=== PATIENT | male | born 1940 | race Caucasian/White ===

== ENCOUNTER 2024-04-14 14:01 | Outpatient (REF) | payer MEDICARE, SELFPAY ==
[2024-04-14 14:22] LABS: Appearance Urine Clear; Color Urine Yellow; Glucose Urine UA Negative (Negative); Leukocyte Esterase Urine Negative (Negative); Nitrite Urine Negative (Negative); Urine Blood Negative (Negative); Urine Ketones Negative (Negative); Urine Protein Negative (Neg-Trace)
[2024-04-14 14:28] LABS: Bacteria Urine None Seen (None Seen); Hyaline Casts Urine 0-2 /LPF (0-2); RBC Urine 0-2 /HPF (0-2); Squamous Epithelial Cell Urine 0-2 /HPF (0-2); WBC Urine 0-5 /HPF (0-5)
== END 2024-04-14 14:02 | disposition home or self-care (01) ==
LOC: HO.MANLNP 14:01
PROVIDERS: Visit Provider Physician Assistant
DX: R35.1 Nocturia (principal)
CPT/HCPCS: 81001

== ENCOUNTER 2024-07-21 09:34 | Outpatient (REF) | payer MEDICARE, SELFPAY ==
--- OUTSIDE RECORDS SUMMARY | 2024-07-21 10:45 | XMS_ITS | Clinical Summary ---
Author Organization [employer] Address [address] [place] [address] Care Team Providers Care Pneumatic Tube Operator Name Role Phone Unavailable Primary Care Provider Unavailabl e Social History Tobacco Use Types Packs/Day Years Used Date Smoking Tobacco: Never Assessed Sex and Gender Information Value Date Recorded Sex Assigned at Male 03/26/2022 10:32 AM EDT Legal Sex Male 10:32 AM EDT Gender Identity Male 03/26/2022 10:32 AM EDT Sexual Orientation Straight 03/26/2022 10 :32 AM EDT Plan of Treatment Health Maintenance Due Date Last Done Comments Depression Screening 1938 Lipid Panel 1938 Alcohol/Substance Use Screening 1950 Tobacco Screening 1950 DTaP/Tdap/Td Vaccines (1 - Tdap) 1957 Pneumococcal Vaccine: 50+ Ye ars (1 of 1 - PCV) 1988 Zoster Vaccines (1 of 2) 1988 RSV Patients and Pa tients Aged 60 years or older (1 - 1-dose 75+ series) 2013 COVID-19 Vaccine ( - 2023-2 5 season) 2024 Influenza Vaccine (#1) 2024 HIB Vaccines Aged Out No longer eligi ble based on patient's age to complete this topic HPV Vaccines Aged Out No longer eligi ble based on patient's age to complete this topic Hepatitis A Vaccines Aged Out No long er eligible based on patient's age to complete this topic Hepatitis B Vaccines Aged Out No long er eligible based on patient's age to complete this topic IPV Vaccines Aged Out No longer eligi ble based on patient's age to complete this topic Meningococcal Vaccine Aged Out No davi cande eligible based on patient's age to complete this topic RSV under 20 months Aged Out No longe r eligible based on patient's age to complete this topic Rotavirus Vaccines Aged Out No longer eligible based on patient's age to complete this topic
--- OUTSIDE RECORDS SUMMARY | 2024-07-21 10:45 | XMS_ITS | Encounter Summary ---
Author Organization [employer] [facility] Address [address] [place] [address] Care Team Providers Care Director Treasurer Name Role Phone Unavailable Primary Care Provider Unavailabl e Encounter Details Date Type Department Care Team (Latest Contact Info) Description 03/26/2019 Abstract [facility] CONVERSIONS Dental, Provider, DDS Social History Tobacco Use Types Packs/Day Years Used Date Smoking Tobacco: Never Assessed Sex and Gender Information Value Date Recorded Sex Assigned at Male 03/26/2022 10:32 AM EDT Legal Sex Male 10:32 AM EDT Gender Identity Male 03/26/2022 10:32 AM EDT Sexual Orientation Straight 03/26/2022 10 :32 AM EDT documented as of this encounter Plan of Treatment Not on file documented as of this encounter Visit Diagnoses Not on filedocumented in this encounter
--- OUTSIDE RECORDS SUMMARY | 2024-07-21 10:45 | XMS_ITS ---
Author Name [facility] [place] Organization [facility] [place] Address [address] [place] [address] Care Team Providers Care Congressional District Aide Name Role Phone GERMAINE OLIVAREZ Primary Care Provider Unavailabl e Insurance Providers: All historical and current Section Date Range: From patient's date of to the date document was created. This section includes the names of all active insurance providers for the patient. Insurance Provider Type of Coverage Plan Name Start of Policy Coverage End of Policy Coverage Group Number Member ID Insurance Provider's Telephone Number Policy Acosta's Name Patient's Relationship to Policy Acosta [facility] MEDICARE SUPPLEMEN LUZ MARIA MEDEX 2 [birth year], 2010 [id number] [phone] GROUT,LUBA ERT PATIENT [facility] MEDICARE SUPPLEMEN LUZ MARIA MEDEX 2 May 27, 2010 [id number] GROUT,LUBA ERT PATIENT MEDICARE (WN) MEDICARE (M) PART A Feb 24, 2003 PART A [id number] GROUT,LUBA ERT PATIENT MEDICARE (WN) MEDICARE (M) PART B Feb 24, 2003 PART B [id number] GROUT,LUBA ERT PATIENT Selected Encounter This section includes the information on record at [place] for the Encounter. Date/Time Encounter Type Encounter Description Reason Provider Source May 14, 2024 02:00 PM HEARING AID REPAIR/MODIFYIN G AUDIOLOGY ICD-10-CM Z46.1 Encounter for fitting and adjustment of hearing aid DEVON HOLLIDAY [facility] Encounter Template Text not used by [place] Assessments - Encounter Diagnoses This section includes the primary and secondary diagnoses documented for the Encounter. Date/Time Primary/Secondary Diagnosis Diagnosis Name Provider Source May 14, 2024 05:49 PM PRIMARY Encounter for fitting and adjustment of hearing aid DEVON HOLLIDAY [place] [facility] May 14, 2024 05:49 PM SECONDARY Sensorineural hearing loss, bilateral [facility] Plan of Treatment: Future Appointments (+ 6 months) and Future Tests (+/- 45 days) The Plan of Treatment section includes future care activities for the patient from all [place] [facility]. This section includes future appointments and future orders which are active, pending or scheduled. Future Appointments This section includes appointments that were scheduled to occur 6 months from the date of the Encounter, up to a maximum of 20 appointments. The data comes from all [place] treatment facilities. Appointment Date/Time Appointment Type Appointme nt Facility Name Jul 27, 2024 09:00 AM AMBULATORY - MEDICINE [facility] Social History: Smoking Status (Most current) and Tobacco Use (All prior to encounter date) This section includes the most current, and the historical, smoking and tobacco- related health factors from the [facility] facility where the Encounter took place. Current Smoking Status This section includes the most current smoking, or tobacco-related health factor, from the [place] facility where the Encounter took place. Date/Time Current Smoking Status Comment Elida khalil Jul 16, 2023 08:00 AM [place]-TOBACCO NEVER USED [facility] Tobacco Use History This section includes a history of the smoking, or tobacco-related health factors, that were collected on or before the date of the Encounter. The data comes from the [place] facility where the Encounter took place. Date/Time Smoking Status/Tobacco Use Comment F acility Jun 19, 2022 09:00 AM [place]-TOBACCO [place] US[place] [facility] Jun 19, 2021 10:00 AM [place]-TOBACCO [place] USED [place] [facility] Jun 20, 2020 10:00 AM [place]-TOBACCO [place] USED [place] [facility] [facility] Jun 23, 2018 09:13 AM [place]-TOBACCO [place] USED [place] [facility] Jun 24, 2017 01:59 PM VA-TOBACCO NEVER USED [place] [facility] Jun 24, 2017 01:01 PM LIFETIME NON-TOBACCO USER [facility] Advance Directives: All historical and current Section Date Range: From patient's date of to the date document was created. This section includes ALL of a patient's completed or amended [place] Advance and Rescinded Directives. The entries below indicate that a directive exists for the patient, but an actual copy is not included with this document. The data comes from all [place] facilities. Date Advance Directives Provider Source September 27, 2020 ADVANCE DIRECTIVE GERMAINE OLIVAREZ [facility] Encounter Notes: All associated encounter notes This section contains the clinical notes associated to the Encounter. Date/Time Encounter Note(s) Provider Source May 14, 2024 02:20 PM AUDIOLOGY E & M NO TE: [facility] TITLE: AUDIOLOGY CLINIC STANDARD TITLE: AUDIOLOGY E & M NOTE DATE OF NOTE: MAY 14, 2024@14:20 ENTRY DATE: MAY 14, 2024@14:20:45 AUTHOR: DEVON HOLLIDAY COSIGNER: URGENCY: STATUS: COMPLETED Dx CODE: Z46.1-Encounter for Fitting/Adjusting Hearing Aid(s); H90.3- Sensorineural Hearing Loss, Bilateral APPOINTMENT TYPE: Hearing Aid Check HISTORY/BACKGROUND: was seen for a hearing aid follow-up appointment, unaccompanied. He was fit on 12/12/21 with [employer] EVOLV AI BTE 13s. He scheduled today appointment noting that the right aid stopped working. HEARING AID CHECK: Inspection indicated moisture in the right thin tube. The hearing aids were cleaned and checked. Listening inspection revealed both devices were working well. Thin tubes and microphone covers were replaced. Hearing aids were in good working condition post-maintenance. He was provided a hearing aid tubing blower to use in this happens again. PLAN/RECOMMENDATION(S): 1. Follow up as needed. Patient Education Education provided on the following topics: Hearing aids Education provided to: P Response to Education: VU [place] Patient P Family F Significant Other SO Verbalizes Understanding VU Returns Demonstration RD Performs Independently PI Lacks Comprehension LC Refused Education RE Not Applicable NA /verena/ EFRAIN JADE, CCC-A STAFF GRINDER SET UP OPERATOR EXTERNAL Signed: 05/14/2024 17:50 DEVON HOLLIDAY [facility]
--- OUTSIDE RECORDS SUMMARY | 2024-07-21 10:45 | XMS_ITS | Continuity of Care Document ---
Author Name [facility] Organization [facility] Care Team Providers Care Automotive Parts Specialist Name Role Phone [facility] Unavailable Unavailable Problems Combined list of problems from Department of [facility] and [facility] facilities. It does not include entries that were removed or entered in error. Problem Status Onset Date Problem Type Date of Resolution Comments Source Primary malignant neoplasm of prostate Active 4 Condition Dec 13, 2023 Entered By: GERMAINE OLIVAREZ Comment: treated with radiation therapy [facility] Hearing Loss ([facility] [id number]) Active 9 Condition Jun 23, 2018 Entered By: GERMAINE OLIVAREZ Comment: treated with hearing aids [facility] HTN - Hypertension ([facility] [id number]) Active 9 Condition Jun 23, 2018 Entered By: GERMAINE OLIVAREZ Comment: followed by private M.D. [facility] [place] [facility] New patient screening status Active [address] [facility] [place] [facility] Diagnosis: ICD-10-CM Z46.1 Encounter for fitting and adjustment of hearing aid Active Diagnosis [facility] [place] [facility] Diagnosis: ICD-10-CM Z02.89 Encounter for other administrative examinations Active Diagnosis [facility] Diagnosis: ICD-10-CM H91.90 Unspecified hearing loss, unspecified ear Active Diagnosis [facility] [place] [facility] Medications Combined list of outpatient medications from Department of Defense and Veterans Affairs facilities.Medications provided include 1) outpatient medications from the last 15 months, and 2) patient-reported medications. Medication Details Route Status Patient Instructions Prescription Expires Prescription Number Last Dispense Date Ordering Provider Order Date Order Qty Source AMLODIPINE BESYLATE 5MG TAB TAKE ONE TABLET BY MOUTH ONCE DAILY ORAL ACTIVE CAROLYN [facility]IVAREZ [address] [facility] ASPIRIN 81MG TAB,EC TAKE ONE TABLET BY MOUTH EVERY DAY ORAL ACTIVE CAROLYN OLIVAREZ 2017 [facility] [place] [facility] Immunizations Combined list of available immunizations from the Department of Defense and Veterans Affairs facilities. Immunization Series Date Given Administered By Site Reaction Lot Number CVX Code Drug Substation Inspector Status Comments Source INFLUENZA, UNSPECIFIED FORMULATION 2022 88 complet ed [facility] [place] [facility] INFLUENZA, UNSPECIFIED FORMULATION 2020 88 complet ed [facility] [place] [facility] [facility] COVID-19 (MODERNA), MRNA, LNP-S, PF, 100 MCG/0.5 ML DOSE 2 2020 207 complet ed MOD; [id number]; 1 [facility] [place] [facility] COVID-19 (MODERNA), MRNA, LNP-S, PF, 100 MCG/0.5 ML DOSE 1 2020 207 complet ed MOD; [id number]; 1 [facility] [place] [facility] INFLUENZA, UNSPECIFIED FORMULATION 2019 88 complet ed [facility] [place] [facility] TD(ADULT) UNSPECIFIED FORMULATION 2019 139 complet ed [facility] [place] [facility] INFLUENZA, SEASONAL, INJECTABLE 2018 141 complet ed [facility] [place] [facility] INFLUENZA, SEASONAL, INJECTABLE 2017 141 complet ed [facility] [place] [facility] ZOSTER RECOMBINANT 2 2017 187 complet ed [facility] [place] [facility] ZOSTER RECOMBINANT 2017 187 complet ed [facility] [place] [facility] INFLUENZA, SEASONAL, INJECTABLE 2016 141 complet ed [facility] [place] [facility] Encounters Combined list of: 1) Encounters from Department of Veterans Affairs facilities going backup to the last 18 months, not all VA inpatient encounters are included; 2) Encounters from the Department of Defense facilities going backup to 280 months. Location Location Details Encounter Type Encounter Number Reason For Visit Attending Provider ADM Date DC Date Status Disposition Source [facility] [place] [facility] Outpatient Encounter [id number] 02/28 [facility] [place] [facility] [place] [facility] Encounter [id number] 06/13 [facility] [place] [facility] [place] Encounter [id number] 06/17 [facility] [place] [facility] [facility] [place] Encounter [id number] 07/09 [facility] [place] [facility] [place] [facility] OFF[facility] O/P EST SF 10 MIN [id number] Diagnos is: ICD-10- CM H91.90 Unspeci fied hearing loss, unspeci fied ear TAIWO OLIVAREZ RD 07/16 [facility] [place] [facility] [facility] [place] Encounter [id number] 08/08 [facility] [place] [facility] [place] Out[facility] Encounter [id number] Diagnos is: ICD-10- CM Z02.89 Encount er for other adminis trative examina tions ANJALI MYERS L 10/08 [facility] [place] [facility] [facility] [place] HEARING AID REPAIR/MOD IFYING [id number] Diagnos is: ICD-10- CM Z46.1 Encount er for fitting and adjustm ent of hearing aid ANJALI MYERS L 10/08 [facility] [place] [place] En[facility] [id number] 12/12 [facility] [place] [facility] [place] [facility] HEARING AID FITTING/CH ECKING [id number] Diagnos is: ICD-10- CM Z46.1 Encount er for fitting and adjustm ent of hearing aid Ravinder MARMOLEJO E 01/22 [place] [facility] [place] [facility] [place] [place] [facility] HEARING AID REPAIR/MOD IFYING [id number] Diagnos is: ICD-10- CM Z46.1 Encount er for fitting and adjustm ent of hearing aid ,YASIR ELLSWORTH L 05/14 [facility] [place] [place] [facility] Social History Combined list of available smoking, tobacco, and other social history from Department of Defense and Veterans Affairs facilities. Social History Type Response Date Comment Sour e Tobacco smoking status KSIS [place]-TOBACCO NEVER USED 07/16/2023 [place] [facility] [place] [facility] of [facility]/19/2022 [place] [facility] [place] [facility] [facility] History of tobacco use [facility] 06/19/2021 [place] [facility] [place] [facility] [facility] History of tobacco use MO-TOBACCO NEVER USED 06/20/2020 [place] [facility] [place] [facility] History of tobacco use MO-TOBACCO NEVER USED 06/23/2018 [facility] [place] [facility] History of tobacco use [place]-TOBACCO NEVER USED 06/24/2017 [place] [facility] [place] [facility] History of tobacco use LIFETIME NON-TOBACCO USER 06/24/2017 [facility] [place] [facility] Plan of Care List of future care activities from Department [facility] facilities. Additional future care activities may be listed in the Assessment and Plan section. Date/Time Care Activity Care Activity Detail Facili ty 07/27/2024 AMBULATORY - MEDICINE AMBULATORY - MEDICI NE [facility] Advance Directives List of completed, amended, or rescinded Advance Directives on record at Department of [facility] facilities. An actual copy of the Directive is not included. Date Advance Directive Provider Source 09/27/2020 ADVANCE DIRECTIVE GERMAINE OLIVAREZ [place] [facility]
--- OUTSIDE RECORDS SUMMARY | 2024-07-21 10:45 | XMS_ITS | Encounter Summary ---
Author Name [facility] Organization [facility] [place] Address [address] [place] [address] Care Team Providers Care Pharmacy Laboratory Technician Name Role Phone GERMAINE OLIVAREZ Primary Care [...] Acosta's Name Patient's Relationship to Policy Acosta [facility] MEDICARE SUPPLEMEN LUZ MARIA MEDEX 2 [birth year] 2010 [id number] GROUT,LUBA ERT PATIENT [facility] MEDICARE SUPPLEMEN LUZ MARIA MEDEX 2 May 27, 2010 [id number] GROUT,LUBA ERT PATIENT MEDICARE (WN) MEDICARE (M) PART A Feb 24, 2003 PART A [id number] GROUT,LUBA ERT PATIENT MEDICARE (WN) MEDICARE (M) PART B Feb 24, 2003 PART B [id number] GROUT,LUBA ERT PATIENT Selected Encounter This section includes the information on record at [place] for the Encounter. Date/Time Encounter Type Encounter Description Reason Provider Source Jan 23, 2024 08:30 AM HEARING AID FITTING/CHECKIN G AUDIOLOGY ICD-10-CM Z46.1 Encounter for fitting and adjustment of hearing aid SUHAANGQIDRE E E Encounter Template Text not used by [facility] Assessments - Encounter Diagnoses This section includes the primary and secondary diagnoses documented for the Encounter. Date/Time Primary/Secondary Diagnosis Diagnosis Name Provider Source Jan 23, 2024 08:46 AM PRIMARY Encounter for fitting and adjustment of hearing aid JALEELDRE E [place] [facility] [place] [facility] Jan 23, 2024 08:46 AM SECONDARY Sensorineural hearing loss, bilateral JALEELDRE E [place] [facility] [facility] Plan of Treatment: Future Appointments (+ 6 months) and Future Tests (+/- 45 days) The Plan of Treatment section includes future care activities for the patient from all [place] [facility]. This section includes future appointments and future orders which are active, pending or scheduled. Future Appointments This section includes appointments that were scheduled to occur 6 months from the date of the Encounter, up to a maximum of 20 appointments. The data comes from all [place] treatment facilities. Appointment Date/Time Appointment Type Appointme nt Facility Name May 14, 2024 02:00 PM AMBULATORY - REHAB MEDICIN E [place] [facility] [place] [facility] Social History: Smoking Status (Most current) and Tobacco Use (All prior to encounter date) This section includes the most current, and the historical, smoking and tobacco- related health factors from the VA facility where the Encounter took place. Current Smoking Status This section includes the most current smoking, or tobacco-related health factor, from the [place] facility where the Encounter took place. Date/Time Current Smoking Status Comment Elida khalil Jul 16, 2023 08:00 AM VA-TOBACCO NEVER USED [place] [facility] [place] [facility] Tobacco Use History This section includes a history of the smoking, or tobacco-related health factors, that were collected on or before the date of the Encounter. The data comes from the [place] facility where the Encounter took place. Date/Time Smoking Status/Tobacco Use Comment F acility Jun 19, 2022 09:00 AM VA-TOBACCO NEVER USED [facility] [facility] Jun 19, 2021 10:00 AM VA-TOBACCO NEVER USED [facility] [facility] Jun 20, 2020 10:00 AM VA-TOBACCO NEVER USED [facility] [place] [facility] Jun 23, 2018 09:13 AM VA-TOBACCO [facility]ED [facility] Jun 24, 2017 01:59 PM VA-TOBACCO [facility] Jun 24, 2017 01:01 PM LIFETIME NON-TOBACCO USER [facility] Advance Directives: All historical and current Section Date Range: From patient's date of to the date document was created. This section includes ALL of a patient's completed or amended [place] Advance and Rescinded Directives. The entries below indicate that a directive exists for the patient, but an actual copy is not included with this document. The data comes from all [place] facilities. Date Advance Directives Provider Source September 27, 2020 ADVANCE DIRECTIVE GERMAINE OLIVAREZ [employer] Encounter Notes: All associated encounter notes This section contains the clinical notes associated to the Encounter. Date/Time Encounter Note(s) Provider Source Jan 23, 2024 07:46 AM AUDIOLOGY E & M NO TE: LOCAL TITLE: AUDIOLOGY CLINIC STANDARD TITLE: AUDIOLOGY E & M NOTE DATE OF NOTE: JAN 23, 2024@07:46 ENTRY DATE: JAN 23, 2024@07:46:41 AUTHOR: DRE MARMOLEJO EXP COSIGNER: URGENCY: STATUS: COMPLETED has a history of bilateral sensorineural hearing loss. He was seen on 01-23-24 for hearing aid follow up regarding his Deborah BTEs- he reported he cleaned the earmolds/tubing with water and now they don't work. He asked about if the VCs work. Initial check revealed both are working fine- agreed when he put them in. Explained moisture must have been clogging tubing temporarily- recommended maintenance every 3-4 months instead of cleaning with water. Tubing and irena covers were replaced. The listening check was positive for both hearing aids. Connected to both aids to [facility]I and verified VC settings. [place] will contact the clinic as needed. /verena/ Nino MEADOWS, [facility] [employer]-A STAFF STUDIO OPERATIONS MANAGER Signed: 01/23/2024 08:52 DRE MARMOLEJO [employer]
--- OUTSIDE RECORDS SUMMARY | 2024-07-21 10:46 | XMS_ITS | Data Portability ---
Author Organization [facility] Service Address [address] [place] [address] Assessment Encounter Date Assessment Date Assessment LastModified by Organization Details LastModified Time 09/23/2023 09/23/2023 Patient presente d to office today for their Medicare Annual Wellness Visit. Education was provided on healthy nutrition, including a diet rich in fruits and vegetables, minimizing simple carbohydrates, salt, and saturated fats. Encouraged regular cardiovascular exercise such as walking at least 30 minutes daily, 5 times per week. Emphasized preventive health measures and educated pt on fall prevention and community-based lifestyle interventions to help reduce health risks and promote healthy living. 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 MUST MEET 2 OUT OF 3 ELEMENTS: PROBLEMS, DATA OR RISK ELEMENT 1: PROBLEMS ADDRESSED 1 OR MORE CHRONIC ILLNESS WITH EXACERBATION OR 2 OR MORE STABLE CHRONIC ILLNESSES OR 1 UNDIAGNOSED NEW PROBLEM OR 1 ACUTE ILLNESS W/SYMPTOMS OR 1 ACUTE COMPLICATED INJURY ELEMENT 2: DATA MUST MEET 1 OF 3 CATEGORIES CATEGORY 1: REVIEW OF PRIOR EXTERNAL NOTES, REVIEW OF RESULTS, ORDERING OF EACH TEST, ASSESSMENT REQUIRING INDEPENDENT HISTORIAN OR CATEGORY 2: INDEPENDENT INTERPRETATION OF TESTS BY ANOTHER PHYSICIAN OR SPECIALIST OR CATEGORY 3: DISCUSSION OF MGT OR TEST INTERPRETATION W/EXTERNAL PHYSICIAN OR SPECIALIST ELEMENT 3: RISK RISK OF COMPLICATIONS AND/OR MORBIDITY OR MORTALITY OF PATIENT MANAGEMENT PROVIDER MUST THOROUGHLY DOCUMENT EACH ELEMENT THAT IS COVERED Not available 01/21/2024 10:14:24 Plan of Treatment Reminders Order Date Submit Date Provider Last Modified By Organization Details Last Modified Time Details Appointments FOLLOW UP 15 2024 09:15A BAKARI ADAMS Not available Not available Not available Lab vitamin B12 + folate, serum or blood 02/2024 [facility], [address] [place] [address], [id number], 07/21/2024 09:56:06 RPR (rapid plasma reagin), serum 2024 [facility], [address] [place] [address], [id number], 07/21/2024 09:56:06 TSH + free T4, serum 2024 [facility], [address] [place] [address], [id number], 07/21/2024 09:56:06 hemoglobi n A1c, QN, blood 2024 [facility], [address] [place] [address], [id number], 07/21/2024 09:29:53 PSA, serum or plasma 2024 [facility], [address] [place] [address], [id number], 07/21/2024 09:56:06 CK (creatine kinase), total, serum 2024 [facility], [address] [place] [address], [id number], 07/21/2024 09:24:11 CMP, serum or plasma 2024 025 [facility], [address] [place] [address], [id number], 07/21/2024 09:24:11 magnesium , serum or plasma 2024 [facility], [address] [place] [address], [id number], 07/21/2024 09:24:11 CMP, serum or plasma 2024 025 [facility], [address] [place] [address], [id number], 07/21/2024 09:24:11 zinc, serum or plasma 2024 025 [facility], [address] [place] [address], [id number], 07/21/2024 09:24:11 PTH (parathyr oid hormone), intact + calcium, serum or plasma 2024 025 [facility], [address] [place] [address], [id number], 07/21/2024 09:24:12 phosphoru s, serum or plasma 2024 025 [facility], [address] [place] [address], [id number], 07/21/2024 09:24:12 ESR (erythroc yte sedimenta tion rate), blood 2024 025 [facility], [address] [place] [address], [id number], 07/21/2024 09:24:11 C reactive protein, QN, serum or plasma 2024 025 [facility], [address] [place] [address], [address], 07/21/2024 09:24:11 urinalysi s, dipstick 2023 024 [facility], [address] [facility], [address], [place], [address], 04/14/2024 12:08:02 urinalysi s complete, reflex culture 2023 024 [facility], [address] [place], [place] [address], [place], [address], 04/15/2024 11:54:47 PSA, total, serum or plasma 2023 024 [facility] ([facility]), [address] [place] [address], [id number], 04/15/2024 14:24:56 CMP, serum or plasma 2023 024 [facility] ([facility]), [address] [place] [address], [address], 04/14/2024 11:53:33 renin activity + aldostero ne, plasma 2023 024 [facility] ([facility]patient), [address] [place] [address], [id number], 04/17/2024 08:29:58 CBC w/ auto diff 2023 024 [facility] ([facility]), [address] [place] [address], [id number], 04/14/2024 16:00:24 lipid panel, blood 2023 024 [facility] ([facility]patient), [address] [place] [address], [address], 02/18/2024 17:38:55 CBC w/ auto diff 2023 024 [facility] ([facility]), [address] [place] [address], [address], 09/24/2023 12:56:36 CMP, serum or plasma 2023 024 [facility] ([facility]), [address] [place] [address], [address], 09/24/2023 13:39:26 CK (creatine kinase), total, serum 2023 024 [facility] (Outpatient), [address] [place], [address], 09/23/2023 15:19:51 ESR (erythroc yte sedimenta tion rate), blood 2023 [facility] ([facility]patient), [address] [place], [address], 09/24/2023 14:30:56 C reactive protein, QN, serum or plasma 2023 [facility] ([facility]), [address] [place], [address], 09/23/2023 15:19:52 Referral dermatolo gist referral 2023 024 [facility], [address], [place], [address], 04/15/2024 08:46:50 dermatolo gist referral 2023 024 [facility], [address], [place], [address], 03/25/2024 08:10:19 orthopedi c surgeon referral 2023 024 [facility], [address] [place] [address], [address], 03/31/2024 08:10:43 physical therapist referral 2023 024 [facility], [address] [place], [address], 01/22/2024 10:53:44 Procedures None recorded. Surgeries None recorded. Imaging US, bladder 2023 [facility], [address] [place] [address], [id number], 04/21/2024 14:37:43 NM, bone scan, whole body 2023 024 [facility], [address] [place], [address], 01/22/2024 10:55:44 CT, chest + abdomen + pelvis, w/o contrast 2023 024 [facility], [address] [place], [address], 01/22/2024 10:55:44 Medication Orders tamsulosi n 0.4 mg capsule 2024 025 [facility] [place] [address], 07/21/2024 09:16:32 amlodipin e 5 mg tablet 2023 024 [facility], [place], [address], 03/24/2024 10:37:28 mupirocin 2 % topical ointment 2023 [id number], [address] [place], [address], 03/24/2024 10:37:47 Patient TargetsNo targets recorded. Patient Instructions Encounter Date Encounter Id Patient Instructions Last Modified By Organization Details Last Modified Time 09/23/2023 [id number] prostate biopsy: about this test Not available 09/23/2023 15:20:45 advance care planning: care instructions Not available 09/23/2023 15:18:29 physical therapy evaluation* - please evaluate gait and leg muscle pain [email or web address] Not available 09/30/2023 08:29:30 Discussed and explained advance directives such as standard forms to the {{patient* caregi lou patient and caregiver}}. Face to face discussion lasted for a duration of _15__ minutes. Not available 09/23/2023 15:14:56 Reason for Referral Physical Therapist Referral for Unsteady when walking Referring Physician: Ad Ching, Internal Medicine, Encounter Date: 01/21/2024 Orthopedic Surgeon Referral for Pain in lower limb bilateral LE pain, had PT which was not effective, muscle pain and cramping, constant, knee pain Referring Physician: Tata Coe, Internal Medicine, Encounter Date: 03/24/2024 Research Asst Referral for M ultiple benign melanocytic nevi needs skin check, new skin lesion on face Referring Physician: Tata Coe, Internal Medicine, Encounter Date: 03/24/2024 Research Asst Referral for 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, 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2 Not Available [facility] [address], [place], [address], 04/14/2024 11:27:38 04/14/20 24 04/14/2024 urina lysis , dipst ick Protein Negati ve Not Available [facility] [address] [place], [address], 04/14/2024 11:27:38 04/14/20 24 04/14/2024 urina lysis , dipst ick pH 7.5 Not Available [facility] [address] [facility] [address], [place], [address], 04/14/2024 11:27:38 04/14/20 24 04/14/2024 urina lysis , dipst ick Blood Negati ve Not Available [facility] [address], [place], [address], 04/14/2024 11:27:38 04/14/20 24 04/14/2024 urina lysis , dipst ick Specific [place] 1.010 Not Available [facility] [address], [place], [address], 04/14/2024 11:27:38 04/14/20 24 04/14/2024 urina lysis , dipst ick Ketone Negati ve Not Available [facility] [address] [facility] [address], [place], [address], 04/14/2024 11:27:38 04/14/20 24 04/14/2024 urina lysis , dipst ick Bilirubin Negati ve Not Available [facility] [address] [facility] [address], [place], [address], 04/14/2024 11:27:38 04/14/20 24 04/14/2024 urina lysis , dipst ick Glucose Negati ve Not Available [facility] [address] [facility] [address], [place], [address], 04/14/2024 11:27:38 04/14/20 24 04/14/2024 urina lysis , dipst ick Appearance Clear Not Available [facility] [address] [facility] [address], [place], [address], 04/14/2024 11:27:38 04/14/20 24 04/14/2024 urina lysis , dipst ick Color Pale Yellow Not Available [facility] [address] [facility] [address], [place], [address], 04/14/2024 11:27:38 08/26/19 24 08/25/2023 CT, head, w/o contr ast No observ ation record ed. [facility] [address] [place] [address], [address], 09/23/2023 15:02:30 03/05/20 24 2024 NM, bone scan, whole body No observ ation record ed. [email or web address] [address], [address], 03/06/2024 10:34:22 03/06/20 24 03/04/2024 CT, chest + abdom en + pelvi s, w/o contr ast No observ ation record [facility]. [email or web address] [address], [place], [address], 03/06/2024 14:04:39 03/06/20 24 03/04/2024 CT, chest + abdom en + pelvi s, w/o contr ast No observ ation record ed. [email or web address] [address], [place], [address], 03/06/2024 14:04:40 04/21/20 24 04/21/2024 US, bladd er No observ ation record ed. [email or web address] [address], [address], 04/21/2024 15:58:50 Result Notes None recorded. 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 03106714 Active 2021 Ad Ching, DO [address] [place] [address], [address], [facility] 2 10:47:35 Right inguinal hernia 339373262 Active 2021 Ad Ching DO [address] [place] [address], [address], [facility] 2 13:34:12 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 244342230 Active 2022 Ad Ching DO [address] [place] [address], [address], [facility] 3 09:50:19 Intermit tent claudica tion 29882042 Active 2022 Ad Ching DO [address] [place] [address], [address], [facility] 3 10:23:12 Benign prostati c hyperpla glenis 868626099 Active 2022 Ad Ching DO [address] [place] [address], [address], [facility] 3 10:58:07 Pain in lower limb 68116778 Active 2022 Ad Ching DO [address] [place] [address], [address], [facility] 3 11:02:34 Pain in lower limb 08324823 Active 2022 Ad Ching DO [address] [place] [address], [address], [facility] 3 11:03:11 Weakness of left lower limb Active 2022 Ad Ching DO [address] [place] [address], [address], [facility] 3 09:57:19 Weakness of right lower limb Active 2022 Ad Ching, DO [address] [place], [address], [facility] 3 09:57:31 Age-asso ciated memory impairme nt 157412447 Active 2023 Ad Ching, DO [address] [place], [address], [facility] 4 11:42:31 Memory impairme nt 517031086 Active 2023 Ad Ching, DO [address] [place], [address], [facility] 4 09:07:02 Foreskin does not retract 115228648 Active 2023 Ad Ching, DO [address] [place] [address], [address], [facility] 4 09:13:45 Muscle pain 22170401 Active 2023 Ad Ching, DO [address] [place] [address], [address], [facility] 4 15:09:33 Prostate specific antigen above referenc e range 023156338 Active 2023 Ad Ching, DO [address] [place] [address], [address], [facility] 4 15:20:12 Lesion of pinna 442914412 Active 2023 Ad Ching, DO [address] [place] [address], [address], [facility] 4 15:26:28 Bilatera l cramp of muscle of lower limbs 05358921042 624734 Active 2023 Ad Ching, DO [address] [place] [address], [address], [facility] 4 10:11:46 Unsteady when walking 78676538 Active 2023 Ad Ching, DO [address] [place], [address], [facility] 4 10:11:54 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 Ad Ching, DO [address] [place], [address], [facility] 4 10:14:00 Multiple benign melanocy tic nevi 574543975 Active 2023 BAKARI WORKMAN [address] [place] [address], [address], [facility] 4 10:41:09 Nodule of lung 309511113 Active 2023 BAKARI WORKMAN [address] [place] [address], [address], [facility] 4 10:45:41 Nocturia 356648996 Active 2023 BAKARI WORKMAN [address] [place], [address], [facility] 4 11:53:27 Pelvic floor dysfunct ion 106546005 Active 2023 BAKARI WORKMAN [address] [place] [address], [address], [facility] 4 11:55:02 Squamous cell carcinom a of skin 063725629 Active 2023 BAKARI WORKMAN [address] [place], [address], [facility] 4 11:57:03 Cramp in lower limb 439651554 Active 2024 BAKARI WORKMAN [address] [place] [address], [address], [facility] 5 09:19:44 Carcinom a of prostate 671882011 Active 2024 BAKARI WORKMAN [address] [place], [address], [facility] Internal [facility] 5 09:27:51 Hypercho lesterol emia 91769940 Active 2017 Monica [facility] 8 08:37:50 Hyperten sive disorder 54052444 [facility] 08:37:54 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 Procedures Surgical History None recorded. Imaging Results Imaging Date Name Status LastModified by Organiz ation Details LastModified Time 08/25/2023 CT, head, w/o contrast completed [facility] [address] [place] [address], [address], 09/23/2023 15:02:30 2024 NM, bone scan, whole body completed [email or web address], [address], 03/06/2024 10:34:22 03/04/2024 CT, chest + abdomen + pelvis, w/o contrast completed [email or web address] [address], [address], 03/06/2024 14:04:39 03/04/2024 CT, chest + abdomen + pelvis, w/o contrast completed [email or web address] [address], [address], 03/06/2024 14:04:40 04/21/2024 US, bladder completed [email or web address] [address], [address], 04/21/2024 15:58:50 Procedure Notes None recorded. Medical Equipment None Reported. Allergies Allergen ID Allergen Name Allergen Category Reaction Reaction Severity Criticality Documentation Date Start Date Code Code System Note Provider Name and Address Organization Details Recorded Time 1984 lovastati n medicatio n Not available Not available Not available 12/18/2017 6472 RxNorm Monica francis [facility] 9 14:21:05 1985 lisinopri l medicatio n Not available Not available Not available 12/18/2017 91490 RxNorm [facility] 9 14:21:05 Medications Name Sig Start Date Stop Date Status Note LastModified by Organization Details LastModified Time amoxicillin 500 mg capsule TAKE 2 CAPSULES BY MOUTH FOR FIRST DOSE, THEN TAKE 1 CAPSULE EVERY 8 HOURS UNTIL FINISHED 09/26 completed Not Available Not Available Not Available terazosin 5 mg capsule TAKE 1 CAPSULE BY MOUTH EVERY DAY 10/30 completed Not Available Not Available Not Available aspirin 325 mg tablet Take 1 tablet every day by oral route. 11/01 completed Not Available Not Available Not Available betamethaso ne, augmented 0.05 % topical cream PLEASE SEE ATTACHED FOR DETAILED DIRECTION S 09/22 completed Not Available Not Available Not Available amlodipine 2.5 mg tablet Take 1 tablet every day by oral route for 90 days. 06/21 completed Not Available Not Available Not Available terazosin 1 mg capsule TAKE 1 CAPSULE BY MOUTH EVERY DAY 12/14 completed Not Available Not Available Not Available amlodipine 5 mg tablet TAKE 1 TABLET DAILY DIRECTED active Not Available Not Available No t Available ciprofloxac in 500 mg tablet TAKE 1 TABLET BY MOUTH TWICE A DAY 03/24 completed Not Available Not Available Not Available amoxicillin 875 mg tablet TAKE 1 TABLET BY MOUTH TWICE A DAY UNTIL FINISHED 09/26 completed Not Available Not Available Not Available tamsulosin 0.4 mg capsule TAKE 2 CAPSULE DAILY 2024 active Not Available Not Available Not Avai lable oxybutynin chloride ER 5 mg tablet,exte nded release 24 hr TAKE 1 TABLET BY MOUTH EVERY DAY 09/22 completed Not Available Not Available Not Available hydrocortis one 2.5 % topical cream APPLY TO AFFECTED AREA 3 TIMES A DAY 09/22 completed Not Available Not Available Not Available Longs Adult Low Strength ASA 81 mg tablet,param yed release Take 1 tablet every day by oral route. 06/26 completed Not Available Not Available Not Available mupirocin 2 % topical ointment APPLY A SMALL AMOUNT TO AFFECTED AREA 3 TIMES A DAY 03/24 completed Not Available Not Available Not Available oxycodone 5 mg tablet TAKE 0.5-1 TABLETS (2.5-5 MG TOTAL) BY MOUTH EVERY 4 (FOUR) HOURS NEEDED. 09/28 completed Not Available Not Available Not Available azelaic acid 15 % topical gel APPLY THIN LAYER TO AFFECTED AREAS OF FACE EVERY DAY TO TWICE A DAY FOR ROSACEA 07/24 completed Not Available Not Available Not Available chlorhexidi ne gluconate 0.12 % mouthwash TAKE 15ML BY MOUTH RINSE/SWI SH FOR 30 SECONDS THEN SPIT TWICE A DAY DO NOT EAT/DRINK FOR 30 MINUTES 09/26 completed Not Available Not Available Not Available Vitamin D3 09/27 completed Not Available Not Available Not Available [employer] At-Home COVID-19 Test kit REFER TO MANUFA[employer]U [employer] ONS INCLUDED IN PACKAGING 10/30 completed Not Available Not Available Not Available Vitals Date Recorded Body height Body mass index (BMI) Body weight Heart rate Oxygen saturation Oxygen saturation in Arterial blood by Pulse oximetry Systolic blood pressure Diastolic blood pressure Provider Name and Address Organization Details Last Updated DateTime 170.18 cm 22.5 kg/m2 03897.1 5 g 69 /min 98 % 98 % 172 mm[Hg] 78 mm[Hg] Ad DougieZandra Ching, DO [address] [place], [address] [place] [address] Internal Medicine 4 14:40:00 Date Recorded Body height Body mass index (BMI) Body weight Heart rate Oxygen saturation Oxygen saturation in Arterial blood by Pulse oximetry Systolic blood pressure Diastolic blood pressure Provider Name and Address Organization Details Last Updated DateTime 4 170.18 cm 21.5 kg/m2 68166.9 5 g 67 /min 97 % 97 % 146 mm[Hg] 76 mm[Hg] Ramandeep Vidales [facility] 4 10:28:01 Date Recorded Body height Body mass index (BMI) Body weight Heart rate Oxygen saturation Oxygen saturation in Arterial blood by Pulse oximetry Systolic blood pressure Diastolic blood pressure Provider Name and Address Organization Details Last Updated DateTime 4 170.18 cm 21.9 kg/m2 45915.9 3 g 77 /min 99 % 99 % 134 mm[Hg] 80 mm[Hg] Ramandeep Vidales [facility] 4 11:37:14 Date Recorded Body height Body mass index (BMI) Body weight Heart rate Oxygen saturation Oxygen saturation in Arterial blood by Pulse oximetry Systolic blood pressure Diastolic blood pressure Provider Name and Address Organization Details Last Updated DateTime 5 170.18 cm 22.3 kg/m2 66588.9 1 g 86 /min 97 % 97 % 176 mm[Hg] 74 mm[Hg] Ramandeeptiffany Vidales [facility] 5 09:12:07 Social History Question Answer Notes LastModified by Organizat ion Details LastModified Time Tobacco Smoking Status Never Smoker Not Available [employer] 03/29/2020 03:36:23 What Was The Date Of Your Most Recent Tobacco Screening? 07/21/2024 [email or web address] Information not available 07/21/2024 Do You Or Have You Ever Used Any Other Forms Of Tobacco Or Nicotine? No Information not available 03/30/2022 Sex: Unknown Functional Status None recorded. Mental Status None recorded. Family History Nothing Reported. Medical History Condition Response Coronary Artery Disease N Gout N Other N Kidney Stones N Blood Diseases N Blood Transfusion N Breast Cancer N Lung Disease N Depression N COPD N Defects or Inherited Disease N Anxiety Disorder N Muscle, Joint, or Bone Problems N Obesity N Vision or Eye Problems N Arthritis N Infertility N Polyps N Mental Disorder N Cancer N Stroke N Varicosities N Endometriosis N Bladder or Kidney Problems N High Cholesterol N Liver Disease N Fibromyalgia N Headaches N Kidney Disease N Allergies/Hayfever N Heart Problems N Hospitalizations N Thyroid Problems N GI Problems N Eating Disorder N Skin Problems N Anemia N MRSA exposure N Constipation N Mental Illness N Diabetes N Ovarian Cancer N Seizures/Epilepsy N Tuberculosis N Congestive Heart Failure (CHF) N Eczema N Abuse/Domestic Violence N Diverticulitis N Asthma N Reflux/GERD N Hepatitis N Heart Disease N Pulmonary Embolism N Hypertension N Chicken Pox N Autism Spectrum Disorder (ASD) N Osteoporosis N Immunizations Vaccine Type Date Status Note Provider Nam e and Address Organization Details Recorded Time zoster recombinant 06/23/19 18 completed Not Available [facility] 07/09/2023 19:01:21 zoster recombinant 01/22/20 18 completed Not Available [facility] 07/09/2023 19:01:21 Pneumococcal conjugate PCV 13 04/08/20 08 completed Not Available [facility] 07/09/2023 19:01:22 pneumococcal polysaccharide PPV23 01/26/20 16 completed Not Available [facility] 07/09/2023 19:01:22 SARS-COV-2 (COVID-19) vaccine, UNSPECIFIED 02/27/20 23 completed Not Available [facility] 07/09/2023 19:01:21 influenza, unspecified formulation 02/27/20 24 completed BAKARI WORKMAN [address] [place] [address], [phone], [facility] 07/21/2024 09:27:21 Influenza, split virus, quadrivalent, preservative 05/14/20 18 completed Not Available [facility] 07/09/2023 19:01:21 Influenza, split virus, quadrivalent, preservative 02/01/20 19 completed Not Available [facility] 07/09/2023 19:01:21 Tdap 12/24/19 18 completed Not Available [facility] 07/09/2023 19:01:22 Influenza, split virus, quadrivalent, preservative 02/12/20 20 completed Not Available [facility] 07/09/2023 19:01:21 Past Encounters Encounter ID Performer Location Encounter Start Date Encounter Closed Date Diagnosis/Indication Diagnosis SNOMED-CT Code Diagnosis ICD10 Code Diagnosis Note [id number] Ad Ching DO [facility] Internal [facility] [address] [facility], [address] [facility] [place] [address] 12/18/2017 08:53:19 12/18/2017 11:22:23 Hypertensive disorder 66636813 I10 doing well no major issues no prob with meds Hypercholesterolemia 136 39514 E78.00 will follow closely as this has been quite good [id number] Ad Ching [facility] Internal Medicine [address] [facility], [place] [address] 07/01/2018 14:09:55 07/01/2018 14:57:42 Hypertensive disorder 32732654 I10 doing well no major issues no prob with meds Hypercholesterolemia 136 92573 E78.00 will follow closely as this has been quite good Adult [facility] examination 680377380 Z00.00 [id number] Ad Zapienamber [facility] Internal [address], [place] [address] 07/28/2018 14:02:06 07/28/2018 14:54:51 Hypertensive disorder 81349573 I10 doing well no major issues will increase the dose of the amlodipine to 5mg daily and rechk in summer no prob with meds Vitamin D deficiency 347 60226 E55.9 recc he take a vit D3 tab daily through the next mo [id number] Ad Diaz Humza [facility] Internal [address], [place] [address] 01/02/2019 09:15:33 01/02/2019 10:35:12 Hypercholesterolemia 39056123 E78.00 will follow closely as this has been quite good will chk lab next visit Hypertensive disorder 38 598851 I10 doing well no major issues will increase the dose of the amlodipine to 5mg daily and rechk in summer no prob with meds home bps are quite good and stable Strain of left pectoral muscle [id number] 3189703 S29.011A recc tylenol and advil combo protocol [id number] Ad ConstantinoZandra Ching [facility] Internal Medicine [address] [facility], [place] [facility] [address] 02/03/2019 14:48:37 02/03/2019 16:01:44 Hypertensive disorder 82050207 I10 doing well no major issues will increase the dose of the amlodipine to 5mg daily and rechk in summer no prob with meds home bps are quite good and stable Nocturia 505942263 R35.1 bph will try tamsulosin [id number] Ad Ching [facility] Internal Medicine [address] [facility], [place] [address] 02/24/2019 10:03:33 02/24/2019 11:27:26 Edema of lower leg 194988198 R60.0 unilateral must first do an US has had for 6 wks no pain or reddness suggest he start using support stockings Benign pro static hyperplasia 629482371 N40.0 cont on tamsulosin as it seems to be feeling better and is not getting up at night as often 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 will need to start his supplement as cold weather comes [id number] Ad Ching [facility] Internal Medicine [address] [facility],[place] [facility] [address] 02/27/2019 08:50:40 02/27/2019 12:33:19 Acute deep vein thrombosis of lower limb 6496716274 08 I82.409 below the knee so we will cont the asa for now and rechk him in sseveral weeks Hypertensive disorder 38 172967 I10 doing well no major issues will increase the dose of the amlodipine to 5mg daily and rechk in summer no prob with meds home bps are quite good and stable [id number] Ad Ching [facility] Internal Medicine [address] [facility],[place] [address] 03/13/2019 11:28:37 03/13/2019 12:43:02 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 97901281 I80.299 will resume the asa as recc by hospital spec and will follow and use stool cards to chk for heme in stool Anemia 246192830 D64.9 will take some iron daily and then rechk lab in mar Painless r ectal bleeding 524670099 K62.5 already had colonoscop y while in hosp seen by GI and felt this was from diverticul ar bleed [id number] Ad Ching [facility] Internal Medicine [address] [facility] [address],[place] [address] 03/16/2019 10:27:42 03/17/2019 11:13:03 Anemia 736460346 D64.9 will take some iron [place] [id number] Ad Ching [facility] Internal [facility] [address] [facility] [address],[place] [address] 04/29/2019 10:31:26 04/29/2019 11:20:00 Thrombophlebitis of superficial veins of lower extremity 64831989 I80.299 No pain or complicati ons. Finished asa without issue. 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 Finished asa without issue. Will continue to monitor Hypercholesterolemia 136 91756 E78.00 will follow closely as this has been quite good will chk lab next visit Benign pro static hyperplasia 973716952 N40.0 cont on tamsulosin as it seems to be feeling better and is not getting up at night as often [id number] Ad Ching [facility] Internal Medicine [address] [facility] [address],[place] [address] 12/01/2019 11:58:40 12/01/2019 13:36:22 Painless rectal bleeding 351886242 K62.5 already had colonoscop y while in hosp seen by GI and felt this was from diverticul ar bleed so might presume it was the same issue even if it was divertic vs int hemorrhoid we will have him see dr ryan again if he bleeds again [id number] Ad Ching DO [facility] Internal Medicine [address] [facility],[place] [address] 09/26/2020 09:47:18 09/26/2020 10:33:31 Hypertensive disorder 35173429 I10 doing well no major issues will increase the dose of the amlodipine to 5mg daily and rechk in summer no prob with meds home bps are quite good and stable Hypercholesterolemia 136 48857 E78.00 will follow closely as this has been quite good will chk lab next visit Benign pro static hyperplasia 480234756 N40.0 cont on tamsulosin as it seems to be feeling better and is not getting up at night as often [id number] Ad Ching DO [facility] Internal Medicine [address] [facility],[place] [facility] [address] 05/05/2021 08:59:37 05/05/2021 09:39:59 Hypertensive disorder 53404639 I10 doing well no major issues will increase the dose of the amlodipine to 5mg daily and rechk in summer no prob with meds home bps are quite good and stable Hypercholesterolemia 136 14554 E78.00 will follow closely as this has been quite good will chk lab next visit Benign pro static hyperplasia 345907516 N40.0 careful with fluid intake at night and is off tamsulosin and is not getting up at night as often Brachial a rtery thrombosis 871414037 I74.2 history of no current issues and no further signs or symptoms we are wondering how this has happened Thrombophl ebitis of superficial veins of lower extremity 01757685 I80.299 No pain or complicati ons. Finished asa without issue. Will continue to monitor [id number] Ad Ching DO [facility] Internal Medicine [address] [facility],[place] [address] 09/27/2021 10:02:13 09/27/2021 15:19:44 Hypertensive disorder 91405173 I10 doing well no major issues will increase the dose of the amlodipine to 5mg daily and rechk in summer no prob with meds home bps are quite good and stablealso long discussion re the use of vitamins and how i recc he use a brand name mvi not generic Hypercholesterolemia 136 08631 E78.00 will follow closely as this has been quite good will chk lab next visit Brachial a rtery thrombosis 432881692 I74.2 history of no current issues and no further signs or symptoms we are wondering how this has happened 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 Finished asa without issue. Will continue to monitor Benign pro static hyperplasia 044469852 N40.0 careful with fluid intake at night and is off tamsulosin and is not getting up at night as often [id number] Ad Ching DO [facility] Internal Medicine [address] [facility],[place] [facility] [place] [address] 03/30/2022 09:17:08 03/30/2022 10:10:24 Hypertensive disorder 71081735 I10 doing well no major issues will increase the dose of the amlodipine to 5mg daily and rechk in summer no prob with meds home bps are quite good and stablealso long discussion re the use of vitamins and how i recc he use a brand name mvi not generic Hypercholesterolemia 136 55542 E78.00 will follow closely as this has been quite good will chk lab next visit Benign pro static hyperplasia 685556371 N40.0 careful with fluid intake at night and is off tamsulosin and is not getting up at night as often Active or passive immunization 491300208 Z23 patient advised he is due for flu shot Active immunization 5995 2475 Z23 discussed vaccines in detail [id number] Ad Ching [facility] Internal Medicine [address] [facility],[place] [address] 09/28/2022 09:20:20 09/28/2022 11:41:48 Hypertensive disorder 21685315 I10 doing well no major issues will increase the dose of the amlodipine to 5mg daily and rechk in summer no prob with meds home bps are quite good and stablealso long discussion re the use of vitamins and how i recc he use a brand name mvi not generic Benign pro static hyperplasia with outflow obstruction 484218687 N40.1 he has extra tamsulosin so we will double up the dose by taking 2 tab daily and will call us at the end of the day. Brachial a rtery thrombosis 335671025 I74.2 history of no current issues and no further signs or symptoms we are wondering how this has happened Thrombophl ebitis of superficial veins of lower extremity 71743684 I80.299 No pain or complicati ons. Finished asa without issue. non issue and resolved [id number] Ad Ching [facility] Internal Medicine [address] [facility],[place] [facility] [place] [address] 10/12/2022 09:37:59 10/12/2022 11:21:51 Intermittent claudication 15590374 I73.9 we will check Hypertensive disorder 38 999310 I10 we will stop amlodipine and he will go on terazosinh ome bps are quite good and stablealso long discussion re the use of vitamins and how i recc he use a brand name mvi not generic Benign pro static hyperplasia with outflow obstruction 398681602 N40.1 has doubled dose and this has not helpedso i will tell him to stop the tamsulosin 2 tabstop amlodipine and we will start terazosin on a tper up 1mg qd x3 then 2 cap qd x 14 then call us if tolerates the med we will increase to 5mg capsule [id number] Ad Ching [facility] Internal Medicine [address] [facility],[place] [facility] [place] [address] 12/14/2022 09:56:31 12/14/2022 14:38:52 Benign prostatic hyperplasia 875691659 N40.0 back on tamsulosin and is getting up 45 times per night he is going to try and double the tamsulosin Hypertensive disorder 38 738663 I10 we will stop amlodipine and he will go on terazosinh ome bps are quite good and stablealso long discussion re the use of vitamins and how i recc he use a brand name mvi not generic Pain in lower limb 65464 006 M79.606 told he should cont to walk and have him geta xray of LS spine if exercises and slower walking dont help then we will get xray of ls spineif xray is negative then we will have him see a sports medicine [id number] Ad Ching, [facility] Internal Medicine [address] [facility] [address],[place] [facility] [address] 01/11/2023 09:28:08 01/11/2023 11:13:05 Hypercholesterolemia 25526338 E78.00 will follow closely as this has been quite good will chk lab next visit Weakness o f left lower limb 6493615594 25069 M62.81 he has known deg disc ds of LS spine Weakness o f right lower limb 7270816162 12858 M62.81 see above Hypertensive disorder 38 300301 I10 we will stop amlodipine and he will go on terazosinh ome bps are quite good and stablealso long discussion re the use of vitamins and how i recc he use a brand name mvi not generic Pain in lower limb 86775 006 M79.606 xray is showing deg disc dsworried that we are seeing evid of spinal stenosis [id number] Ad Ching [facility] Internal Medicine [address] [facility] [address],[place] [address] 06/21/2023 10:47:07 06/21/2023 12:06:40 Hypercholesterolemia 53897733 E78.00 will follow closely as this has been quite good will chk lab next visit Hypertensive disorder 38 419868 I10 we will stop amlodipine and he will go on terazosinh ome bps are quite good and stablealso long discussion re the use of vitamins and how i recc he use a brand name mvi not generic Intermitte nt claudication 95193899 I73.9 we will check 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 [id number] Ad Ching [facility] Internal Medicine [address] [facility] [address],[place] [address] 07/24/2023 08:51:12 07/26/2023 10:46:53 Hypercholesterolemia 15141385 E78.00 will follow closely as this has been quite good will chk lab next visit Hypertensive disorder 38 502404 I10 we will stop amlodipine and he will go on terazosinh ome bps are quite good and stablealso long discussion re the use of vitamins and how i recc he use a brand name mvi not generic 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 needs referral Memory impairment 706370 006 R41.3 lab is negative will refer to neuro and get a ct scan 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 957875797 N47.1 he will be seeing the urologist next week [id number] Ad Ching, [facility] Internal Medicine [address] [facility],[place] [address] 09/23/2023 14:34:57 09/23/2023 16:20:39 Adult health examination 459546808 Z00.01 he is doing quite well neurology showed no evid of dementia Muscle pain 63089546 M79 .10 Prostate s pecific antigen above reference range 636737630 R97.20 he will follow up with dr yepez re getting a biopsy Lesion of pinna 76271766 2 H61.899 [id number] Ad Ching, [facility] Internal Medicine [address] [facility] [address],[place] [address] 01/21/2024 09:50:08 01/21/2024 13:56:13 Benign prostatic hyperplasia with outflow obstruction 068074125 N40.1 has doubled dose and this has not helpedso i will tell him to stop the tamsulosin 2 tabstop amlodipine and we will start terazosin on a tper up 1mg qd x3 then 2 cap qd x 14 then call us if tolerates the med we will increase to 5mg capsule Hypercholesterolemia 136 51162 E78.00 will follow closely as this has been quite good will chk lab next visit Hypertensive disorder 38 581196 I10 we will stop amlodipine and he will go on terazosinh ome bps are quite good and stablealso long discussion re the use of vitamins and how i recc he use a brand name mvi not generic Muscle pain 46249155 M79 .10 Depression screening 171 450327 Z13.31 neg Bilateral cramp of muscle of lower limbs 8908817472 3056139 R25.2 mg not helping will look into this more to see if we can Unsteady when walking 22 857625 R26.89 will have him eval by PT 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 discussed at length with pt since he initially opted not to do this but having second thoughts will order ctchest abd/pelvis and bone scan to see where we stand [id number] BAKARI WORKMAN [facility] Internal Medicine [address] [facility] [address],[place] [facility] [address] 03/24/2024 10:16:07 03/24/2024 15:22:42 Hypertensive disorder 13956348 I10 stable Pain in lower limb 39703 006 M79.606 recommende d ortho f/u Multiple b enign melanocytic nevi 768973646 D22.4 will set up with dermatolog ist Nodule of lung 996617374 R91.[address] recheck in 12 mos just to ensure [id number] BAKARI WORKMAN [facility] Internal Medicine [address] [facility] [address],[place] [address] 04/14/2024 11:16:17 04/14/2024 12:09:02 Nocturia 237733502 R35.1 will set up with screening for his prostate and bladder given the frequency Pelvic mateo or dysfunction 934665964 M62.9 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 [id number] BAKARI WORKMAN [facility] Internal Medicine [address] [facility] [address],[place] [address] 07/21/2024 09:00:33 07/21/2024 09:38:05 Benign prostatic hyperplasia 668534238 N40.0 will set up with tamsulosin again, worked before, told him to take two if it doesn't seem to work as much Cramp in lower limb 7213 74181 R25.2 will set up with lab work to determine if there is a cause of his muscle aches Carcinoma of prostate 25 7566685 C61 recheck levels Memory impairment 297111 006 R41.3 will set up with the lab work to determine Health Concerns Section Related Observation LastModified by Organization Detai ls LastModified Time None Recorded Concern Status LastModified by Organization Details LastModified Time None Recorded Advance Directives Directive None Recorded Payers Encounter Date Sequence Insurance Name Policy Number Policy Acosta Covered Member ID Acosta Member ID Guarantor Name 09/23/2023 2 [place] [id number] You Daily [id number] You Grout 09/23/2023 1 [place] [employer] [place] You Ewdardsut [id number] You Grout 01/21/2024 2 [place] [id number] You Eldridge Grout [id number] You Grout 01/21/2024 1 [place] You Eldridge Grout [id number] You Grout 03/24/2024 2 [place] [id number] You Eldridge Grout [id number] You Grout 03/24/2024 1 [place] [employer] You Eldridge Grout [id number] You Grout 04/14/2024 2 [place] [id number] You Eldridge Grout [id number] You Grout 04/14/2024 1 [place] [employer] You Eldridge Grout [id number] You Grout 07/21/2024 2 [place] [id number] You Eldridge Grout [id number] You Grout 07/21/2024 1 [place] [facility] You Edwardsut [id number] You Grout Notes Date Note Type Note Provider Name and Address Organization Details Recorded Time 4 text/htm l Medicare Annual Wellness VisitReported bypatient.Diet and Nutrition:healthy diet Fracture Risk:no history of fractures; no recent explained fracture; no sudden unexplained fractures; no previous musculoskeletal injuries Physical Activity:exercises on a regular basis; recent increase in physical activity; good physical condition Depression Risk:never feels sad, empty, or tearful; no loss of interest in activities; no significant changes in weight; no sleep disturbances or insomnia; no agitation; no loss of energy; no feelings of worthlessness or guilt; no thoughts of suicide; no history of depression; no history of mood disorders Orientation:no disorientation to time; no disorientation to date; no disorientation to place Concentration and Memory:no decreased concentrating ability; no memory lapses or loss; does not forget words Speech/Motor difficulties:no speech difficulties; no difficulty expressing formulated concepts; no difficulty with fine manipulative tasks; no difficulty writing/copying; no slowed reaction time; does not knock things over when trying to pick them up Hearing:no loss of hearing Vision:no vision problems Activities of Daily Living:able to bathe with limited or no assistance; able to contol urination and bowels; able to dress with limited or no assistance; able to feed self with limited or no assistance; able to get out of chair or bed with limited or no assistance; able to groom with limited or no assistance; able to toilet with limited or no assistance Instrumental Activities of Daily Living:able to do house work with limited or no assistance; able to grocery shop with limited or no assistance; able to manage medications with limited or no assistance; able to manage money with limited or no assistance; able to prepare meals with limited or no assistance; able to use the phone with limited or no assistance Falls Risk Assessment:no frequent falls while walking; no fall in the past year; no fall since last visit; no dizziness/vertigo Home Safety:no unsafe analisa hazzards; no unsafe stairs; no unsafe gas appliances; working smoke/CO detectors; wears protective head gear for biking/high velocity; use of seatbelts; practicing 'safer sex'; no vision or hearing loss while driving; no fire arms; has hand bars in the bathroom/shower; good lighting in the home relates that he has been ok overallstates that he has had some arthralgia and muscle aching noted after pruning trees two months agohad started magnesium dailyand over the last 6 weeks is still not betterrelates his legs were really sore after mowing lawnrelates that on uneven surface his muscles are sore Ad Ching, [address] [place] [address], [phone], [facility] 09/23/2023 15:27:00 4 text/htm l patient is evaluated via tele/video assessment per patient consentduring current pandemic relates doing pretty goodhe was told that he had prostate cancer on his bx in october and at the time opted not to do anything but now he has second thoughtslong detailed discussion re [employer] and options now available will meet with him after eval tests Ad Ching DO [address] [place], [address], [facility] 01/21/2024 10:19:16 4 text/htm l f/u BP check HTN: today in the office the patient BP is 146/76 the patient is doing well on the BP medication with no side effects and no adjustment of their medications needed today at the appointment well-controlled on medication denies chest pain, sob, ankle swelling, orthopnea, palpitations patient has been having muscle pain in bilateral lower extremities for yearspatient reports that he noticed when it happened that he was standing for hours watching tree get taken down in the cold constant leg pain, in both legsall throughout the daythe patient reports that there are no other triggers since it's all the time the patient had seen PTrecommended ortho new mole on the facerecommended f/u with derm for skin examprobably SK discussed CT and bone scanreviewed results with patientrecommended f/u [address] chest to make sure the nodules do not changeno findings of malignancy or otherwise all questions to patient satisfactiondetailed explanation of all his results BAKARI WORKMAN [address] [place], [address], [facility] 03/24/2024 10:52:08 4 text/htm l the patient reports that he has been having the patient is up every hour at night to urinatedoes feel like he empties his bladder, no pain, no blood, no smell or color change does also frequently through the day the patient does h the patient had prostate cancer BAKARI WORKMAN [address] [place], [address], [facility] 04/14/2024 12:00:20 5 text/htm l 6 mos BPH: the patient reports that he is still having the night time excessive urination, has difficulty sleeping due to ithas been on flomax in the past with good results, did stop taking it because he thinks it stopped workingrecommended taking two capsules, his script was written for two capsules however he states he never took twoif not effective discussed alternatives for patientdoes have a hx of prostate cancer muscle cramps: for about 3 years he has had the muscle cramping in his LE bilaterallysuggested lab work, possibly def in something, recommended lab work memory impairment: did seem a little confused in office today, had to repeat the same things to himpossible issue with the hearing as well that could be adding to itrecommended lab work to check for b12 or thyroid problem BP: elevated in office, didn't take his pill yet, usually stablewill recheck levels at home and see if they stay elevated BAKARI WORKMAN [address] [place] [address], [place], [address], [facility] 07/21/2024 09:36:36
--- OUTSIDE RECORDS SUMMARY | 2024-07-21 10:46 | XMS_ITS | Continuity of Care Document ---
Author Organization [facility], [facility] Address [address] [facility] [place] [address] Assessment No assessment recorded. Plan of Treatment Reminders Order Date Submit Date Provider Last Modified By Organization Details Last Modified Time Details Appointments FOLLOW UP 15 2024 09:15A BAKARI ADAMS Not available Not available Not available Lab vitamin B12 + folate, serum or blood 2024 025 [facility], [address] [place] [address], [id number], 07/21/2024 09:56:06 RPR (rapid plasma reagin), serum 2024 025 [facility], [address] [place] [address], [id number], 07/21/2024 09:56:06 TSH + free T4, serum 2024 025 [facility], [address] [place] [address], [id number], 07/21/2024 09:56:06 hemoglobi n A1c, QN, blood 2024 025 [facility], [address] [place] [address], [id number], 07/21/2024 09:29:53 PSA, serum or plasma 2024 025 [facility], [address] [place] [address], [id number], 07/21/2024 09:56:06 CK (creatine kinase), total, serum 2024 025 [facility], [address] [place] [address], [id number], 07/21/2024 09:24:11 CMP, serum or plasma 2024 025 [facility], [address] [place] [address], [id number], 07/21/2024 09:24:11 magnesium , serum or plasma 2024 025 [facility], [address] [place] [address], [id number], 07/21/2024 09:24:11 CMP, serum or plasma 2024 025 [facility], [address] [place] [address], [id number], 07/21/2024 09:24:11 zinc, serum or plasma 2024 025 [facility], [address] [place] [address], [id number], 07/21/2024 09:24:11 PTH (parathyr oid hormone), intact + calcium, serum or plasma 2024 025 [facility], [address] [place] [address], [id number], 07/21/2024 09:24:12 phosphoru s, serum or plasma 2024 025 [facility], [address] [place] [address], [id number], 07/21/2024 09:24:12 ESR (erythroc yte sedimenta tion rate), blood 2024 025 [facility], [address] [place], [address], 07/21/2024 09:24:11 C reactive protein, QN, serum or plasma 2024 [facility], [address] [place] [address], [place], [id number], 07/21/2024 09:24:11 Referral None recorded. Procedures None recorded. Surgeries None recorded. Imaging None recorded. Medication Orders tamsulosi n 0.4 mg capsule 2024 [facility], [facility], BAKARI Anand, [id number], 07/21/2024 09:16:32 Patient TargetsNo targets recorded. Patient InstructionsNo instructions recorded. Reason for Referral None Reported. 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 65364043 Active 2021 Ad Ching DO [address] [place] [address], [address], [facility] 2 10:47:35 Right inguinal hernia 018594890 Active 2021 Ad Ching DO [address] [place] [address], [address], [facility] 2 13:34:12 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 151389501 Active 2022 Ad Ching DO [address] [place] [address], [address], [facility] 3 09:50:19 Intermit tent claudica tion 06274750 Active 2022 Ad Ching, DO [address] [place], [address], [facility] 3 10:23:12 Benign prostati c hyperpla glenis 728752623 Active 2022 Ad Ching, DO [address] [place], [address], [facility] 3 10:58:07 Pain in lower limb 43275752 Active 2022 Ad Ching, DO [address] [place], [address], [facility] 3 11:02:34 Pain in lower limb 12712939 Active 2022 Ad Ching, DO [address] [place] [address], [address], [facility] 3 11:03:11 Weakness of left lower limb Active 2022 Ad Ching, DO [address] [place] [address], [address], [facility] 3 09:57:19 Weakness of right lower limb Active 2022 Ad Ching, DO [address] [place] [address], [address], [facility] 3 09:57:31 Age-asso ciated memory impairme nt 723443962 Active 2023 Ad Ching, DO [address] [place], [address], [facility] 4 11:42:31 Memory impairme nt 098844340 Active 2023 Ad Ching, DO [address] [place], [address], [facility] 4 09:07:02 Foreskin does not retract 234785401 Active 2023 Ad Ching, DO [address] [place] [address], [address], [facility] 4 09:13:45 Muscle pain 63453283 Active 2023 Ad Ching, DO [address] [place] [address], [address], [facility] 4 15:09:33 Prostate specific antigen above referenc e range 003421006 Active 2023 Ad Ching, DO [address] [place] [address], [address], [facility] 4 15:20:12 Lesion of pinna 809195120 Active 2023 Ad Ching, DO [address] [place] [address], [address], [facility] 4 15:26:28 Bilatera l cramp of muscle of lower limbs 66928274532 419765 Active 2023 Ad Ching, DO [address] [place] [address], [address], [facility] 4 10:11:46 Unsteady when walking 41648046 Active 2023 Ad Ching, DO [address] [place] [address], [address], [facility] 4 10:11:54 Adenocar cinoma of prostate 277312762 Active 2023 Ad Ching, DO [address] [place] [address], [address], [facility] 4 10:14:00 Multiple benign melanocy tic nevi 313652352 Active 2023 BAKARI WORKMAN [address] [place] [address], [address], [facility] 4 10:41:09 Nodule of lung 968881757 Active 2023 BAKARI WORKMAN [address] [place], [address], [facility] 4 10:45:41 Nocturia 328132817 Active 2023 BAKARI WORKMAN [address] [place], [address], [facility] 4 11:53:27 Pelvic floor dysfunct ion 278636527 Active 2023 BAKARI WORKMAN [address] [place], [address], [facility] 4 11:55:02 Squamous cell carcinom a of skin 330319186 Active 2023 BAKARI WORKMAN [address] [place], [address], [facility] 4 11:57:03 Cramp in lower limb 188478900 Active 2024 BAKARI WORKMAN [address] [place] [address], [address], [facility] [place] [facility] 5 09:19:44 Carcinom a of prostate 116553142 Active 2024 BAKARI WORKMAN [address] [place], [address], [facility] 5 09:27:51 Hypercho lesterol emia 67924549 Active 2017 Monica francis [facility] 8 08:37:50 Hyperten sive disorder 92872662 Active 2017 Monica francis [facility] 8 08:37:54 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 Monica francis [facility] 8 08:38:20 Divertic ulitis 647726633 Completed 201712/18/2017 Ad Ching DO [address] [place], [address], [facility] [place] [facility] 8 09:17:07 Oral lesion 18697515584 07 Active 2017 Monica francis [facility] 8 08:38:34 History of cholecys tectomy 293135851 Active 2017 Monica francis [facility] 8 08:39:00 Ulcer of mouth 68274110 Active 2017 Monica francis [facility] 8 08:39:06 History of vasectom y 520549526 Active 2017 1966 Monica francis [facility] 8 08:39:16 Problem Notes None recorded. Medical Equipment None Reported. Allergies Allergen ID Allergen Name Allergen Category Reaction Reaction Severity Criticality Documentation Date Start Date Code Code System Note Provider Name and Address Organization Details Recorded Time 1984 lovastati n medicatio n Not available Not available Not available 12/18/2017 6472 RxNorm Monica francis [facility] 9 14:21:05 1985 lisinopri l medicatio n Not available Not available Not available 12/18/2017 26695 RxNorm Monica francis [facility] 9 14:21:05 Medications Name Sig Start Date [...] Updated DateTime 5 170.18 cm 22.3 kg/m2 89954.9 1 g 86 /min 97 % 97 % 176 mm[Hg] 74 mm[Hg] [facility] 09:12:07 Social History Question Answer Notes LastModified by Organizat ion Details LastModified Time Tobacco Smoking Status Never Smoker Not Available [facility] 03/29/2020 03:36:23 What Was The Date Of [...] N Blood Transfusion N Breast Cancer N COPD N Depression N Lung Disease N Defects or Inherited Disease N Anxiety [...] zoster recombinant 06/23/19 18 completed Not Available [facility] 07/09/2023 19:01:21 zoster recombinant 01/22/20 18 completed Not Available [facility] 07/09/2023 19:01:21 Pneumococcal conjugate PCV 13 04/08/20 08 completed Not Available [facility] 07/09/2023 19:01:22 pneumococcal polysaccharide PPV23 01/26/20 16 completed Not Available [facility] 07/09/2023 19:01:22 SARS-COV-2 (COVID-19) vaccine, UNSPECIFIED 02/27/20 23 completed Not Available [facility] 07/09/2023 19:01:21 influenza, unspecified formulation 10/03/20 24 completed BAKARI WORKMAN [address] [facility], [place], [address], [facility] 07/21/2024 09:27:21 Influenza, split virus, quadrivalent, preservative 05/14/20 18 completed Not Available [facility] 07/09/2023 19:01:21 Influenza, split virus, quadrivalent, preservative 02/01/20 19 completed Not Available [facility] 07/09/2023 19:01:21 Tdap 12/24/19 18 completed Not Available [facility] 07/09/2023 19:01:22 Influenza, split virus, quadrivalent, preservative 02/12/20 20 completed Not Available [facility] 07/09/2023 19:01:21 Past Encounters Encounter ID Performer Location Encounter Start Date Encounter Closed Date Diagnosis/Indication Diagnosis SNOMED-CT Code Diagnosis ICD10 Code Diagnosis Note [id number] BAKARI WORKMAN Internal Medicine [address] [facility],[place] [address] 07/21/2024 09:00:33 07/21/2024 09:38:05 Benign prostatic hyperplasia 173185509 N40.0 will set up with tamsulosin again, worked before, told him to take two if it doesn't seem to work as much Cramp in lower limb 9735 26704 R25.2 will set up with lab work to determine if there is a cause of his muscle aches Carcinoma of prostate 25 0484734 C61 recheck levels Memory impairment 585803 006 R41.3 will set up with the lab work to determine Health Concerns Section Related Observation LastModified by Organization Detai ls LastModified Time None Recorded Concern Status LastModified by Organization Details LastModified Time None Recorded Payers Encounter Date Sequence Insurance Name Policy Number Policy Acosta Covered Member ID Acosta Member ID Guarantor Name 07/21/2024 2 [place] [id number] You Daily [id number] You Daily 07/21/2024 1 [place] [id number] You Daily [id number] You Daily Notes Date Note Type Note Provider Name and Address Organization Details Recorded Time 5 text/htm l 6 mos BPH: the [...] see if they stay elevated BAKARI WORKMAN [address] [place] [address], [place], [address], [place] [facility] 07/21/2024 09:36:36
[2024-07-21 13:50] LABS: Estimated Average Glucose 103 mg/dL; Hemoglobin A1c % 5.2 % (<6.0)
[2024-07-21 13:56] LABS: Anion Gap 9 (12-20)
[2024-07-21 14:11] LABS: Alanine Aminotransferase 18 U/L (0-40); Albumin Level 3.9 g/dL (3.5-5.0); Alkaline Phosphatase 53 U/L (39-117); Aspartate Amino Transferase 33 U/L (5-37); Blood Urea Nitrogen 19 mg/dL (9-16); C Reactive Protein < 0.10 mg/dL (< or = 0.50); Calcium 8.8 mg/dL (8.4-10.2); Carbon Dioxide 28 mmol/L (22-29); Chloride 101 mmol/L (96-108); Estimated Glomerular Filt Rate > 60; Glucose Random 98 mg/dL (60-115); Phosphorus 2.8 mg/dL (2.7-4.5); Potassium 4.3 mmol/L (3.3-5.1); Sodium 134 mmol/L (135-145); Thyroid Stimulating Hormone 1.22 uIU/mL (0.32-4.0); Total Protein 6.9 g/dL (6.5-8.0)
[2024-07-21 14:13] LABS: Erythrocyte Sedimentation Rate 5 MM/HR (0-15)
[2024-07-21 14:19] LABS: Prostate Specific Antigen 13.01 ng/mL (<0.05-4.0); Vitamin B12 704 pg/mL (200-900)
[2024-07-22 08:36] LABS: Syphilis Screen Nonreactive (Nonreactive)
[2024-07-23 23:53] LABS: Zinc 60 mcg/dL (60-130)
== END 2024-07-21 09:35 | disposition home or self-care (01) ==
LOC: HO.MANLDS 09:34
PROVIDERS: Visit Provider Internal Medicine
DX: R25.2 Cramp and spasm (principal); C61 Malignant neoplasm of prostate; R41.3 Other amnesia; Z12.5 Encounter for screening for malignant neoplasm of prostate; Z13.1 Encounter for screening for diabetes mellitus
CPT/HCPCS: 36415; 80053; 82550; 82607; 83036; 83735; 83970; 84100; 84153; 84436; 84443; 84630; 85652; 86140; 86780